=== PATIENT | female | born 1950 | race Two or more races ===

== ENCOUNTER 2019-06-21 10:56 | Inpatient (IN) | payer OTHER ==
[~2019-06-21] VITALS: Ht 162.6 cm; Wt 83.9 kg
[2019-07-06] MEDS ORDERED: LOSARTAN-HCTZ1 EAC1 PO (09:39)
[2019-07-06] MEDS ORDERED: ATORVASTATIN CA20 MG PO (09:40)
[2019-07-06] MEDS ORDERED: FLUOXETINE HCL20 MG PO (09:40)
[2019-07-06] MEDS ORDERED: RANITIDINE HCL300 MG PO (09:40)
== END 2019-07-16 18:32 | disposition home or self-care (01) | DRG 330 ==
LOC: SURG 07-06 07:30 → O/R 07-13 05:30 → SURG 07-13 05:30
PROVIDERS: ADMIT Colon & Rectal Surgery
PROC: 07TB4ZZ Resection of Mesenteric Lymphatic, Percutaneous Endoscopic Approach (ICD-10-PCS; 2019-07-13)
PROC: 0DJD8ZZ Inspection of Lower Intestinal Tract, Via Natural or Artificial Opening Endoscopic (ICD-10-PCS; 2019-07-13)
PROC: 0DTN4ZZ Resection of Sigmoid Colon, Percutaneous Endoscopic Approach (ICD-10-PCS; principal; 2019-07-13 17:15)
DX: D12.7 Benign neoplasm of rectosigmoid junction (principal); K92.1 Melena; R59.0 Localized enlarged lymph nodes; I10 Essential (primary) hypertension; Z86.010 Personal history of colon polyps

== ENCOUNTER 2020-08-04 09:23 | Day surgery (SDC) | payer OTHER ==
[~2020-08-04 09:23] MED LIST: ATORVASTATIN CA20 MG PO; FLUOXETINE HCL20 MG PO; LOSARTAN-HCTZ1 EAC1 PO; RANITIDINE HCL300 MG PO
== END 2020-08-04 16:55 | disposition home or self-care (01) ==
LOC: AMB-ENDOS 09:23
PROVIDERS: ATTEND Colon & Rectal Surgery
DX: K62.89 Other specified diseases of anus and rectum (principal); Z20.828 Contact with and (suspected) exposure to other viral communicable diseases